=== PATIENT | female | born 2005 | race Hispanic/Latino ===

== ENCOUNTER 2023-10-15 05:42 | Inpatient (IN) | payer BC ==
[2023-10-15] MEDS ORDERED: Carboprost 250 MCG/ML AMP IM PRN (07:25)
[2023-10-15] MEDS ORDERED: Promethazine HCl 25 MG/ML VIAL IM PRN (07:25)
[2023-10-15] MEDS ORDERED: Methylergonovine 0.2 MG/ML VIAL IM PRN (07:25)
[2023-10-15] MEDS ORDERED: Diphenoxylate HCl/Atropine Tablet PO PRN (07:25)
[2023-10-15] MEDS ORDERED: Misoprostol 200 MCG TAB PR PRN (07:25)
[2023-10-15] MEDS ORDERED: Ondansetron PF 4 MG/2 ML Vial IVP PRN (07:25)
[2023-10-15] MEDS ORDERED: Bisacodyl 10 MG SUPP PR PRN (07:25)
[2023-10-15] MEDS ORDERED: hydrALAZINE 20 MG/ML VIAL SLOW IVP PRN ×2 (07:25)
[2023-10-15] MEDS ORDERED: Oxytocin 30 units/NS 500 ML 500 ML IV SCH (07:30)
[2023-10-15 08:44] LABS: Hematocrit 29.8 % (34.9-44.5); Mean Corpuscular HGB CONC 30.2 g/dL (32.0-36.0); Mean Corpuscular Hemoglobin 22.1 pg (27.0-33.0); Mean Corpuscular Volume 73.2 fl (81.6-98.3); Platelet Count 159 10x3/uL (150-450); RBC Distribution Width 14.9 % (11.5-14.5); Red Blood Cell (RBC) Count 4.07 10x6/uL (3.90-5.03)
[2023-10-15 08:46] VITALS: BMI 35.7
[2023-10-15 09:04] LABS: Syphilis Antibody Nonreactive (Nonreactive); Syphilis Antibody Index 0.04 S/CO (<1.00 Non-Reactive)
[2023-10-15 09:05] LABS: HIV (1/2) Antibody/Antigen Non-Reactive (NonReactive); HIV 1/2 INDEX 0.12 S/CO (<1.00)
[2023-10-15 09:07] LABS: HBSAg Index 0.21 S/CO (0-0.99); Hep B Surf Ag - L&D Non-Reactive S/CO (NonReactive)
[2023-10-15] MEDS: Lactated Ringer's 1,000 ML IV SCH (10:08)
[2023-10-15 11:33] LABS: Amphetamine Not Detected (NotDetected); Barbiturates Screen Not Detected (NotDetected); Benzodiazepine Screen Not Detected (NotDetected); Cocaine Metabolite Screen Not Detected (NotDetected); Methadone Not Detected (NotDetected); Methamphetamine Not Detected (NotDetected); Opiate Screen Not Detected (NotDetected); Oxycodone Screen Not Detected (NotDetected); Phencyclidine (PCP) Not Detected (NotDetected); THC/Cannabinoid Screen Not Detected (NotDetected); Tricyclic Screen Not Detected (NotDetected)
[2023-10-15] MEDS: Docusate 100 MG CAP PO SCH (12:20)
[2023-10-15] MEDS: Ferrous Sulfate 325 MG TAB PO SCH (12:20)
[2023-10-15] MEDS: Ibuprofen 800 MG TAB PO SCH (13:33)
[2023-10-15] MEDS: Boostrix 0.5 ML (Tdap) VIAL (>/=7 yrs of age) IM ONE (14:27)
[2023-10-15 14:52] LABS: Hep C IgG Ab NonReactive S/CO (NonReactive)
[2023-10-16 03:47] LABS: Hematocrit 24.9 % (34.9-44.5); Hemoglobin 7.6 g/dL (12.0-15.5); Mean Corpuscular HGB CONC 30.5 g/dL (32.0-36.0); Mean Corpuscular Hemoglobin 22.4 pg (27.0-33.0); Mean Corpuscular Volume 73.5 fl (81.6-98.3); Platelet Count 129 10x3/uL (150-450); RBC Distribution Width 15.1 % (11.5-14.5); Red Blood Cell (RBC) Count 3.39 10x6/uL (3.90-5.03); White Blood Cell (WBC) Count 9.8 10x3/uL (3.5-10.5)
[2023-10-16] MEDS: Milk Of Magnesia 30 ML UDCUP PO PRN (07:58)
[2023-10-16] MEDS: Polyethylene Glycol 3350 17 GM Packet PO SCH (07:58)
[2023-10-17 07:46] VITALS: BP 99/51; TEMP 97.9
== END 2023-10-17 16:15 | disposition home or self-care (01) | DRG 806 ==
LOC: CSHLD 07:27 → CSHPP 11:20
PROVIDERS: ADMIT Obstetrics & Gynecology; ATTEND Obstetrics & Gynecology
PROC: 10E0XZZ Delivery of Products of Conception, External Approach (ICD-10-PCS; principal; 2023-10-15)
DX: O99.893 Other specified diseases and conditions complicating puerperium (principal); D62 Acute posthemorrhagic anemia; Z37.0 Single live birth; O70.20 Third degree perineal laceration during delivery, unspecified; O90.81 Anemia of the puerperium; R10.9 Unspecified abdominal pain; Z90.49 Acquired absence of other specified parts of digestive tract
CPT/HCPCS: 36415; 80053; 80306; 85025; 85027; 86762; 86780; 86803; 86850; 86900; 86901; 87340; 87389; 96365; J2590

== ENCOUNTER 2025-05-06 13:44 | Outpatient (CLI) | payer BC | END 2025-05-06 13:45 | disposition home or self-care (01) | LOC: CSHULT 13:44 | PROVIDERS: ATTEND Nurse Practitioner Family | DX: N63.12 Unspecified lump in the right breast, upper inner quadrant (principal); N63.22 Unspecified lump in the left breast, upper inner quadrant | CPT/HCPCS: 76642 ==